=== PATIENT | female | born 1950 | race Caucasian/White ===

== ENCOUNTER 2017-08-06 11:00 | Outpatient (RCR) | payer MEDICARE, SELFPAY ==
--- NOTE | 2017-08-03 17:01 | PT.OIE ---
Current Diagnoses Spondylolisthesis, lumbar region (08/03/17) Other spondylosis with radiculopathy, lumbar region (08/03/17) Spinal stenosis, lumbar region without neurogenic claudication (08/03/17) Other abnormalities of gait and mobility (08/03/17) Provider Visit Care Team Role Provider Type Lalo Bauer MD Family Provider Physician Primary Care Provider Specialty: Family Practice Address: [address] [place] [address], [id number] Email: [email or web address] Vitaly Crabtree MD Attending Provider Physician Specialty: Orthopedic Surgery Address: [address] [place] [address], [id number] Email: [email or web address] [facility] Initial Evaluation PT-OP-A Visit Information Start: 08/03/17 13:44 Freq: Status: Active Protocol: Document 08/03/17 13:45 AMB (Rec: 08/03/17 15:36 AMB [email or web address]) Out-Patient Physical Therapy Visit Information Visit Information Visit Type Initial Evaluation Visit Note G code 0/10 Visit Start Time 13:45 Visit Stop Time 14:45 Total Visit Minutes 60 Visit Number 1 Evaluation Information Evaluation Date 08/03/17 PT-OP-B Current Condition Start: 08/03/17 13:44 Freq: Status: Active Protocol: Document 08/03/17 13:45 AMB (Rec: 08/03/17 16:14 AMB [email or web address]) Current Condition History of Current Condition Onset Date 06/04/17 Current Complaints Back pain radiates to L LE, difficult walking, difficulty with transfers History of Current Condition The patient reports an 11 year history of back pain, with a TLIF L3-5 with left hemilaminectomy at L2-3. Prior Treatments and Tests Previous physical therapy, personal training. Prior Functional Status Baseline Function- ADL's Independent Baseline Function- Mobility Independent Baseline Function- Gait Patient was ambulating without assistive device Current Functional Impairments (Reported) Functional Limitations- ADL's Pt is unable to lift or bend. Unable to reach the floor to put her dog dish on the floor. Functional Limitations- Mobility/Gait Pt has only been walking around her home. She has not gone grocery shopping yet. Personal Factors Other Personal Factors That May Effect The patient relies on friends Therapy/Recovery for assistance, some of whom she worries may not be especially trustworthy. Chronic nature of back pain, chronic nature of left knee pain, fibromyalgia, current smoker (trying to cut down). PT-OP-C Subjective Start: 08/03/17 13:44 Freq: Status: Active Protocol: Document 08/03/17 13:45 AMB (Rec: 08/03/17 16:14 AMB [email or web address]) Patient Questionnaires Oswestry Low Back Index Oswestry Score 66 Oswestry Impairment 60 to 79% Impaired (Score 60- 79) OP-PT Pain Assessment Pain Assessment Grid Paper Pain Assessment Grid Completed Yes Location low back and left leg Pain Location Details 6-9/10 Scale Used Numeric (1 - 10) Description Cramping Sharp Frequency Constant Radiating Location down the left posterior hip and into the groin Pain Aggravating Factors ADL's Activity Standing Sitting Walking Bending Lifting Pain Alleviating Factors Cold Home Pain Medication Use Pain Medications Used Yes: Aleve Home Pain Medication Frequency Pt states she is no longer taking opiates, Aleve hurts her stomach PT-OP-E Functional Tests Start: 08/03/17 13:44 Freq: Status: Active Protocol: Document 08/03/17 13:45 AMB (Rec: 08/03/17 16:34 AMB [email or web address]) Functional Tests Timed Up and Go (TUG) Score 39 seconds Comments 1 SPC TUG Impairment Rating 100% Impaired (Score 20) PT-OP-G Mobility & Gait Start: 08/03/17 13:44 Freq: Status: Active Protocol: Document 08/03/17 13:45 AMB (Rec: 08/03/17 16:34 AMB [email or web address]) OP Mobility Evaluation Bed Mobility Rolling pain and poor body mechanics Supine to and from Sit log roll Functional Movements Lifting and Carrying Lifts her dog (8#) from seated to standing keeping her close to her waist. Unable to lift her from the floor. OP Gait Assessment Gait Gait Assistance Required: Standby Assistance Distance (Feet) (feet) 75 Assistive Devices Assistive Device Straight Cane Gait Deviations General Gait Pattern Antalgic PT-OP-J Posture/Palpation/Skin Start: 08/03/17 13:44 Freq: Status: Active Protocol: Document 08/03/17 13:45 AMB (Rec: 08/03/17 16:34 AMB [email or web address]) Skin Assessment Incisional Assessment Incision Appearance/Comments 2 scars lateral to spine along lumbar spine. Well healed. PT-OP-K Range of Motion Start: 08/03/17 13:44 Freq: Status: Active Protocol: Document 08/03/17 13:45 AMB (Rec: 08/03/17 16:18 AMB [email or web address]) Lumbar Spine Range of Motion Lumbar Spine Active Degrees Testing Position standing Flexion 5 Extension 10 Lateral Flexion Left 7 Lateral Flexion Right 5 ROM Limitations Muscle Weakness Pain Comments pain with flexion and right sidebending PT-OP-M Strength Start: 08/03/17 13:44 Freq: Status: Active Protocol: Document 08/03/17 13:45 AMB (Rec: 08/03/17 16:20 AMB [email or web address]) Hip Strength Hip Manual Muscle Testing Left Flexion (L2) 3 Fair Extension (S1) 3+ Fair+ Abduction 3+ Fair+ Right Flexion (L2) 3+ Fair+ Extension (S1) 3+ Fair+ Abduction 3+ Fair+ Knee Strength Knee Manual Muscle Testing Left Flexion (S2) 4- Good- Extension (L3) 4- Good- Right Flexion (S2) 4 Good Extension (L3) 4 Good PT-OP-T Assessment and Plan Start: 08/03/17 13:44 Freq: Status: Active Protocol: Document 08/03/17 13:45 AMB (Rec: 08/03/17 16:51 AMB [email or web address]) Physical Therapy Assessment Rehab Potential Rehabilitation Potential Fair Evaluation Complexity Number of Personal Factors/Comorbidities 3 or More Number of Body Systems Impaired 4 or More Clinical Presentation at Evaluation Evolving Impairments Impairments Activity Tolerance Balance Functional Activities Functional Mobility Gait Pain ROM Strength Goals 3 Impairment Gait Short Term Goal (STG) The patient will improve her TUG time with 1 SPC to less than 20 seconds. STG Duration 4 weeks Residential Goal (LTG) The patient will ambulate in the community for 20 minutes with her SPC without an increase in her baseline pain. LTG Duration 8 weeks 2 Impairment Strength Short Term Goal (STG) The patient will be independent with an aquatic and land based exercise program to improve her core and LE strength. STG Duration 4 weeks Die Machine Operator Goal (LTG) The patient will carry a bag of groceries from her car to her house with good body mechanics without an increase in her baseline pain. LTG Duration 8 weeks 1 Impairment ROM Short Term Goal (STG) The patient will improve her lumbar ROM to 30 degrees of flexion, 20 degrees of extension and 10 degrees of sidebending bilaterally. STG Duration 4 weeks Die Machine Operator Goal (LTG) The patient will squat and bend down to place her dog's food bowl on the floor with good body mechanics with 5/10 back pain or less. LTG Duration 8 weeks Assessment Summary Assessment The patient presents with high pain (6-8/10) levels that are limiting her walking, sitting , standing, squatting tolerance. Her history of left knee pain limits her squatting and her she has acute back pain with forward flexion of even 5 degrees. Currently she is not yet at her previous functional level as she continues to need a SPC and her activity tolerance is quite poor (she needs to sit multiple times while preparing a meal), she has not tried to ambulate outside her house except for medical appointments. She will benefit from PT to improve her functional mobility and reduce her pain levels. Physical Therapy Plan Frequency and Duration Frequency of Treatment 3x/Week Duration of Treatment 8 weeks Plan of Care Start Date 08/03/17 Plan of Care End Date 09/28/17 Therapeutic Interventions Therapeutic Interventions Aquatic Therapy Balance Training Gait Training Home Exercise Program Manual Therapy Neuromuscular Re-education Patient/Caregiver Education Self-Care/Home Management Therapeutic Activities Therapeutic Exercises Modalities Cold Pack/Ice Massage Provider Signature Date
--- NOTE | 2017-08-06 17:07 | PT.OTN ---
Current Diagnoses Spondylolisthesis, lumbar region (08/06/17) Other spondylosis with radiculopathy, lumbar region (08/06/17) Spinal stenosis, lumbar region without neurogenic claudication (08/06/17) Physical Therapy Treatment Note PT-OP-A Visit Information Start: 08/03/17 13:44 Freq: Status: Active Protocol: Document 08/06/17 16:40 CLB (Rec: 08/06/17 17:01 CLB [id number]) Out-Patient Physical Therapy Visit Information Visit Information Visit Type Treatment Note Visit Start Time 11:05 Visit Stop Time 11:45 Total Visit Minutes 40 Visit Number 2 Number of BRICK HANDLER Visits 1 PT-OP-B Current Condition Start: 08/03/17 13:44 Freq: Status: Active Protocol: Document 08/03/17 13:45 AMB (Rec: 08/03/17 16:14 AMB [email or web address]) Current Condition History of Current Condition Onset Date 06/04/17 Current Complaints Back pain radiates to L LE, difficult walking, difficulty with transfers History of Current Condition The patient reports an 11 year history of back pain, with a TLIF L3-5 with left hemilaminectomy at L2-3. Prior Treatments and Tests Previous physical therapy, personal training. Prior Functional Status Baseline Function- ADL's Independent Baseline Function- Mobility Independent Baseline Function- Gait Patient was ambulating without assistive device Current Functional Impairments (Reported) Functional Limitations- ADL's Pt is unable to lift or bend. Unable to reach the floor to put her dog dish on the floor. Functional Limitations- Mobility/Gait Pt has only been walking around her home. She has not gone grocery shopping yet. Personal Factors Other Personal Factors That May Effect The patient relies on friends Therapy/Recovery for assistance, some of whom she worries may not be especially trustworthy. Chronic nature of back pain, chronic nature of left knee pain, fibromyalgia, current smoker (trying to cut down). PT-OP-C Subjective Start: 08/03/17 13:44 Freq: Status: Active Protocol: Document 08/06/17 16:40 CLB (Rec: 08/06/17 17:05 CLB [id number]) OP-PT Subjective Patient Comments Patient Comments Pt eager to do pool therapy. OP-PT Pain Assessment Location low back and left leg Scale Used not rated Description Sharp Frequency Frequent PT-OP-E Functional Tests Start: 08/03/17 13:44 Freq: Status: Active Protocol: Document 08/03/17 13:45 AMB (Rec: 08/03/17 16:34 AMB [email or web address]) Functional Tests Timed Up and Go (TUG) Score 39 seconds Comments 1 SPC TUG Impairment Rating 100% Impaired (Score 20) PT-OP-G Mobility & Gait Start: 08/03/17 13:44 Freq: Status: Active Protocol: Document 08/03/17 13:45 AMB (Rec: 08/03/17 16:34 AMB [email or web address]) OP Mobility Evaluation Bed Mobility Rolling pain and poor body mechanics Supine to and from Sit log roll Functional Movements Lifting and Carrying Lifts her dog (8#) from seated to standing keeping her close to her waist. Unable to lift her from the floor. OP Gait Assessment Gait Gait Assistance Required: Standby Assistance Distance (Feet) (feet) 75 Assistive Devices Assistive Device Straight Cane Gait Deviations General Gait Pattern Antalgic PT-OP-J Posture/Palpation/Skin Start: 08/03/17 13:44 Freq: Status: Active Protocol: Document 08/03/17 13:45 AMB (Rec: 08/03/17 16:34 AMB [email or web address]) Skin Assessment Incisional Assessment Incision Appearance/Comments 2 scars lateral to spine along lumbar spine. Well healed. PT-OP-K Range of Motion Start: 08/03/17 13:44 Freq: Status: Active Protocol: Document 08/03/17 13:45 AMB (Rec: 08/03/17 16:18 AMB [email or web address]) Lumbar Spine Range of Motion Lumbar Spine Active Degrees Testing Position standing Flexion 5 Extension 10 Lateral Flexion Left 7 Lateral Flexion Right 5 ROM Limitations Muscle Weakness Pain Comments pain with flexion and right sidebending PT-OP-M Strength Start: 08/03/17 13:44 Freq: Status: Active Protocol: Document 08/03/17 13:45 AMB (Rec: 08/03/17 16:20 AMB [email or web address]) Hip Strength Hip Manual Muscle Testing Left Flexion (L2) 3 Fair Extension (S1) 3+ Fair+ Abduction 3+ Fair+ Right Flexion (L2) 3+ Fair+ Extension (S1) 3+ Fair+ Abduction 3+ Fair+ Knee Strength Knee Manual Muscle Testing Left Flexion (S2) 4- Good- Extension (L3) 4- Good- Right Flexion (S2) 4 Good Extension (L3) 4 Good PT-OP-S Aquatic Treatment Start: 08/06/17 13:37 Freq: Status: Active Protocol: Document 08/06/17 16:40 CLB (Rec: 08/06/17 17:01 CLB [id number]) Aquatics Treatment Pool Entry/Exit Pool Entry/Exit Method Stairs Assistance Standby Assistance Water Walking Forwards Water Level Chest Level Level of Assistance Contact Guard Assistance Comments Pt had difficulty with balance in water. Lower Extremity Exercises 5 Details Seated knee ext Body Position Sitting Reps/Duration 10 4 Details Squats Body Position Standing Water Level Waist Level Reps/Duration 10 3 Details Leg circles Body Position Sitting Water Level Chest Level Reps/Duration 10 2 Details Hip flx Body Position Standing Water Level Chest Level Reps/Duration 10 1 Details Hip Abd Body Position Standing Water Level Chest Level Reps/Duration 10 Comments Pt had difficulty with SLS on RLE. PT-OP-T Assessment and Plan Start: 08/03/17 13:44 Freq: Status: Active Protocol: Document 08/06/17 16:40 CLB (Rec: 08/06/17 17:01 CLB [id number]) Physical Therapy Assessment Assessment Summary Assessment Pt was tremulous and had difficulty with balance. Pt was not comfortable with floating devices and going into deep water. Pt gained confidence with water walking and increased stride length by end of therapy session. Physical Therapy Plan Frequency and Duration Frequency of Treatment 3x/Week Duration of Treatment 8 weeks Plan of Care Start Date 08/03/17 Plan of Care End Date 09/28/17 Next Visit Focus/Plan Next Visit Plan Continue to progress aquatics as tolerated.
--- NOTE | 2017-08-21 07:51 | PT.OPDS ---
Current Diagnoses Spondylolisthesis, lumbar region (08/06/17) Other spondylosis with radiculopathy, lumbar region (08/06/17) Spinal stenosis, lumbar region without neurogenic claudication (08/06/17) Provider Visit Care Team Role Provider Type Lalo Bauer MD Family Provider Physician Primary Care Provider Specialty: Family Practice Address: [address] [place] [address], [id number] Email: [email or web address] Vitaly Crabtree MD Attending Provider Physician Specialty: Orthopedic Surgery Address: [address] [place] [address], [address] Email: [email or web address] Discharge Summary PT-OP-B Current Condition Start: 08/03/17 13:44 Freq: Status: Active Protocol: Document 08/03/17 13:45 AMB (Rec: 08/03/17 16:14 AMB [email or web address]) Current Condition History of Current Condition Onset Date 06/04/17 Current Complaints Back pain radiates to L LE, difficult walking, difficulty with transfers History of Current Condition The patient reports an 11 year history of back pain, with a TLIF L3-5 with left hemilaminectomy at L2-3. Prior Treatments and Tests Previous physical therapy, personal training. Prior Functional Status Baseline Function- ADL's Independent Baseline Function- Mobility Independent Baseline Function- Gait Patient was ambulating without assistive device Current Functional Impairments (Reported) Functional Limitations- ADL's Pt is unable to lift or bend. Unable to reach the floor to put her dog dish on the floor. Functional Limitations- Mobility/Gait Pt has only been walking around her home. She has not gone grocery shopping yet. Personal Factors Other Personal Factors That May Effect The patient relies on friends Therapy/Recovery for assistance, some of whom she worries may not be especially trustworthy. Chronic nature of back pain, chronic nature of left knee pain, fibromyalgia, current smoker (trying to cut down). PT-OP-C Subjective Start: 08/03/17 13:44 Freq: Status: Active Protocol: Document 08/21/17 07:47 AMB (Rec: 08/21/17 07:51 AMB [id number]) OP-PT Subjective Patient Comments Patient Comments The patient called in to say that walking from her car into therapy was just too much for her. Called her MD office and suggested home health. The patient is therefore discharged from outpatient physical therapy at this time. While she tried to come to appointments, she is not leaving her house at this time due to pain. Physical Therapy Plan Discharge Physical Therapy Discharge Reasons Patient Request Discharge Comments Hopefully will be getting home health, cannot tolerate outpatient PT at this time despite being very gentle, patient states that the drive and the walk in here are too much. No goals met at this time. Patient attended one evaluation and one aquatic visit.
== END 2017-08-24 08:58 ==
LOC: PHYS 11:00
PROVIDERS: Family Provider Family Medicine; PCP Family Medicine; Visit Provider Orthopaedic Surgery Orthopaedic Surgery of the Spine
DX: M48.061 Spinal stenosis, lumbar region without neurogenic claudication (principal); M47.26 Other spondylosis with radiculopathy, lumbar region; M43.16 Spondylolisthesis, lumbar region; R26.89 Other abnormalities of gait and mobility
CPT/HCPCS: 97113; 97162

== ENCOUNTER → 2019-05-27 06:57 | Outpatient (CLI) | payer MEDICARE, SELFPAY ==
[2019-05-27 07:37] LABS: Add Manual Diff / Slide Review NO; Basophils Absolute Auto 100 /uL (0-100); Basophils Percent Auto 0.7 % (0-2); Eosinophils Absolute Auto 100 /uL (0-450); Eosinophils Percent Auto 1.3 % (2-4); Hemoglobin 16.2 g/dL (12.0-16.0); Lymphocytes Absolute Auto 2500 /uL (1100-4500); Lymphocytes Percent Auto 28.4 % (25-40); Mean Corpuscular HGB Conc 33.8 % (30-36); Mean Corpuscular Hemoglobin 31.7 PG (26-34); Mean Corpuscular Volume 93.8 fL (80-100); Monocytes Absolute Auto 500 /uL (0-900); Monocytes Percent Auto 6.1 % (3-14); Neutrophils Absolute Auto 5700 /uL (1500-7000); Neutrophils Percent Auto 63.5 % (50-75); Platelet Count 356 X10^3/uL (150-400); Red Blood Cell Count 5.11 X10^6/uL (4.0-5.2); White Blood Cell Count 8.9 X10^3/uL (4.5-11.0)
[2019-05-27 07:47] LABS: Hemoglobin A1C% w Est Avg Glu 5.4 % (4.0-6.0)
[2019-05-27 08:30] LABS: HEMOLYSIS < 15 (0-50)
[2019-05-27 08:31] LABS: Alanine Aminotransferase 14 IU/L (<35); Albumin 4.6 g/dL (3.5-5.0); Albumin Globulin Ratio 1.4 (1.0-2.8); Alkaline Phosphatase 101 U/L (38-126); Aspartate Aminotransferase 27 IU/L (14-36); BUN Creatinine Ratio 34.3 (6-22); Bilirubin Total 0.4 mg/dL (0.2-1.3); Blood Urea Nitrogen 24 mg/dL (7-17); Calcium 10.5 mg/dL (8.4-10.2); Carbon Dioxide 30 mmol/L (22-32); Chloride 103 mmol/L (98-107); Estimated Glomerular Filt Rate > 60.0 mL/min (>60); Globulin 3.2 g/dL (1.7-4.1); Glucose 112 mg/dL (80-110); HDL Cholesterol 47 mg/dL (40-60); Sodium 142 mmol/L (137-145); Total Protein 7.8 g/dL (6.3-8.2); Triglycerides 242 mg/dL (35-150)
[2019-05-27 08:38] LABS: Cholesterol 345 mg/dL (140-199); LDL Cholesterol Calculated 250 mg/dL (<100); Potassium 5.5 mmol/L (3.4-5.1)
== END ==
PROVIDERS: Family Provider Family Medicine; PCP Family Medicine; Referring Provider Family Medicine; Visit Provider Family Medicine
DX: Z79.899 Other long term (current) drug therapy (principal); E16.2 Hypoglycemia, unspecified
CPT/HCPCS: 36415; 80053; 80061; 83036; 85025

== ENCOUNTER → 2019-12-17 07:06 | Outpatient (CLI) | payer MEDICARE, SELFPAY ==
[2019-12-17 09:05] LABS: Add Manual Diff / Slide Review NO; Basophils Absolute Auto 100 /uL (0-100); Basophils Percent Auto 0.6 % (0-2); Eosinophils Absolute Auto 200 /uL (0-450); Hematocrit 43.7 % (36-46); Hemoglobin 14.8 g/dL (12.0-16.0); Hemoglobin A1C% w Est Avg Glu 5.6 % (4.0-6.0); Lymphocytes Absolute Auto 2100 /uL (1100-4500); Lymphocytes Percent Auto 26.9 % (25-40); Mean Corpuscular Hemoglobin 31.8 PG (26-34); Mean Corpuscular Volume 93.5 fL (80-100); Monocytes Absolute Auto 500 /uL (0-900); Monocytes Percent Auto 6.2 % (3-14); Neutrophils Absolute Auto 5000 /uL (1500-7000); Neutrophils Percent Auto 64.3 % (50-75); Platelet Count 343 X10^3/uL (150-400); Red Blood Cell Count 4.67 X10^6/uL (4.0-5.2); Red Cell Distribution Width 13.5 % (11.6-14.8); White Blood Cell Count 7.8 X10^3/uL (4.5-11.0)
[2019-12-17 09:31] LABS: Alanine Aminotransferase 16 IU/L (<35); Albumin 4.2 g/dL (3.5-5.0); Albumin Globulin Ratio 1.6 (1.0-2.8); Alkaline Phosphatase 103 U/L (38-126); Aspartate Aminotransferase 30 IU/L (14-36); BUN Creatinine Ratio 22.1 (6-22); Bilirubin Total 0.3 mg/dL (0.2-1.3); Blood Urea Nitrogen 15 mg/dL (7-17); Calcium 9.5 mg/dL (8.4-10.2); Carbon Dioxide 32 mmol/L (22-32); Chloride 102 mmol/L (98-107); Cholesterol 190 mg/dL (140-199); Estimated Glomerular Filt Rate > 60.0 mL/min (>60); Globulin 2.6 g/dL (1.7-4.1); Glucose 103 mg/dL (80-110); HDL Cholesterol 51 mg/dL (40-60); HEMOLYSIS < 15 (0-50); LDL Cholesterol Calculated 118 mg/dL (<100); Potassium 4.7 mmol/L (3.4-5.1); Sodium 144 mmol/L (137-145); Total Protein 6.8 g/dL (6.3-8.2); Triglycerides 107 mg/dL (35-150)
== END ==
PROVIDERS: Family Provider Family Medicine; PCP Family Medicine; Referring Provider Family Medicine; Visit Provider Family Medicine
DX: E16.2 Hypoglycemia, unspecified (principal)
CPT/HCPCS: 36415; 80053; 80061; 83036; 85025

== ENCOUNTER → 2023-07-30 15:37 | Outpatient (ROUT) | payer MEDICARE, SELFPAY | PROVIDERS: Family Provider Family Medicine; PCP Family Medicine; Visit Provider Dermatology | DX: Z48.817 Encounter for surgical aftercare following surgery on the skin and subcutaneous tissue (principal); Z48.02 Encounter for removal of sutures; D48.5 Neoplasm of uncertain behavior of skin; L57.8 Other skin changes due to chronic exposure to nonionizing radiation; L71.8 Other rosacea; X32.XXXA Exposure to sunlight, initial encounter | CPT/HCPCS: 87070; 87075; 87205 ==

== ENCOUNTER 2023-08-04 12:29 | Emergency (ER) | payer MEDICARE, SELFPAY ==
[2023-08-04 12:40] VITALS: BP 195/91; PULSE 90; RESP 16; TEMP 37.4; O2SAT 96; BMI 25.6
--- NOTE | 2023-08-04 13:14 | ED_ITS ---
HPI - Skin/Abscess/Foreign Bdy General Chief complaint: Skin/Abscess/Foreign Body Stated complaint: Staph infection flare up, right forearm Time Seen by Provider: 08/04/23 13:13 Source: patient Mode of arrival: Ambulatory Limitations: no limitations History of Present Illness HPI narrative: 73-year-old female with history of chronic back pain multiple orthopedic injuries and recurrent skin cell cancers who had an excision in May with Dermatology. She states they had used dissolvable sutures for the inner layer on an excision and they did not dissolve. She ultimately had several sutures removed over time and then several from the inner repair for her excision on her forearm. She then developed a red spot. It has since progressed. She saw her bundle person who either aspirated or I indeed some pus from the site and sent a culture on the 29 of July. Patient received a call Sunday and was started on cephalexin and has had 4 doses since then. She states the redness has continued to spread in the puffiness has moved towards her elbow. She states painful. No fevers, no chest pain or shortness of breath no nausea or vomiting no other GI or urinary symptoms. She states it isn't tracking upper arm. She states she had gotten a call that told her it was a staph infection but does not know if it was MRSA or not. Patient states medication include PRN Tylenol, diazepam, oxycodone. She states no other daily medications she has multiple allergies and is allergic to Neosporin and sulfa. Patient states she has had multiple orthopedic injuries including in her right shoulder. She also notes she has a lot of tendon issues at baseline. Related Data Home Medications Medication Instructions Recorded Confirmed melatonin 5 mg tablet 2 tab PO QDAY ##0 05/17/17 11/09/17 diazepam 10 mg tablet 10 mg PO DAILY PRN 30 days 12/06/17 11/18/18 Previous Rx's Medication Instructions Recorded erythromycin 5 mg/gram (0.5 %) eye 1 applic OPHTH TID ##3.5 05/24/17 ointment fluticasone propionate 50 2 spray intranasal QDAY #9.9 grams 10/08/17 mcg/actuation nasal spray,suspension (Flonase Allergy Relief) omeprazole 20 mg capsule,delayed 20 mg PO DAILY #30 caps 11/25/17 release carisoprodol 350 mg tablet 350 mg PO BID PRN muscle pain #60 12/03/17 tabs carisoprodol 350 mg tablet 350 mg PO BID PRN muscle pain #60 12/03/17 tabs carisoprodol 350 mg tablet 350 mg PO BID PRN muscle pain #60 12/03/17 tabs oxycodone-acetaminophen 7.5 mg-325 1 tab PO Q6H PRN pain #120 tabs 12/03/17 mg tablet oxycodone-acetaminophen 7.5 mg-325 1 tab PO Q6H PRN pain #120 tabs 12/03/17 mg tablet oxycodone-acetaminophen 7.5 mg-325 1 tab PO Q6H PRN pain #120 tabs 12/03/17 mg tablet escitalopram oxalate 20 mg tablet 20 mg PO QDAY #90 tabs 04/08/18 lamotrigine 100 mg tablet 100 mg PO QDAY #30 tabs 05/06/18 (Lamictal) vortioxetine 10 mg tablet 10 mg PO DAILY #30 tabs 05/10/18 (Trintellix) tetracycline 500 mg tablet 500 mg PO Q6H 7 days #28 tabs 08/04/23 Allergies Allergy/AdvReac Type Severity Reaction Status Date / Time bacitracin Allergy Severe Anaphalaxis Verified 11/18/18 14:01 [From NEOSPORIN ([id number])] neomycin Allergy Severe Anaphalaxis Verified 11/18/18 14:01 [From NEOSPORIN ([id number])] polymyxin B Allergy Severe Anaphalaxis Verified 11/18/18 14:01 [From NEOSPORIN ([id number])] gabapentin [GABAPENTIN] Allergy Intermediate Dizzyness Verified 11/18/18 14:01 and nausea Iodine and Iodide Containing Allergy Unknown Verified 11/18/18 14:01 Produc [IODINE AND IODIDE CONTAINING PRODUC] venlafaxine [VENLAFAXINE] AdvReac Intermediate Dizzyness Verified 11/18/18 14:01 and nausea bupropion [BUPROPION] AdvReac Unknown Verified 11/18/18 14:01 rofecoxib [From VIOXX] AdvReac Unknown Verified 11/18/18 14:01 Sulfa (Sulfonamide AdvReac Unknown Verified 11/18/18 14:01 Antibiotics) [SULFA (SULFONAMIDE ANTIBIOTICS)] varenicline [From CHANTIX] AdvReac Unknown Verified 11/18/18 14:01 Fibromyalgia medications Allergy Intermediate Dizzyness Uncoded 11/18/18 14:01 and nausea Review of Systems Review of Systems ROS Unobtainable: All systems reviewed & are unremarkable except as noted in HPI and below Patient History Medical History (Updated 08/04/23 @ 13:48 by Claudia Velázquez DO) Uncomplicated opioid dependence Actinic keratosis (~12/2016) Spinal stenosis (Unknown) Hyperlipemia (Unknown) Plantar warts (Unknown) Polymyalgia rheumatica (Unknown) Allergic rhinitis (Unknown) Osteoarthritis (Unknown) Anxiety (Unknown) Depression (Unknown) Restless leg syndrome (Unknown) Chronic back pain (Unknown) Fibromyalgia (Unknown) Fractures (Unknown) Scoliosis (Unknown) Urinary incontinence (Unknown) Genital warts (Unknown) Abnormal Pap smear of cervix (Unknown) Skin cancer (Unknown) Hypertension (Unknown) GERD (gastroesophageal reflux disease) (Unknown) Colon polyps (Unknown) Cervical cancer (Unknown) Surgical History History of back surgery (05/2017) Family History Brother Prostate cancer Child Hypertension Father High cholesterol Stroke Grandmother Heart disease Stroke Mother Hypertension Mental health problem Sister Breast cancer Social History Smoking Status: Former smoker alcohol intake: never substance use type: does not use Smoking Status: Former smoker Substance Use Type: does not use Exam Narrative Exam Narrative: GENERAL: Alert and oriented x three, well-appearing female in mild distress. HEENT: Head normocephalic, atraumatic, EOMI, pupils reactive, face symmetric, moist mucous membranes NECK: Supple, full range of motion CARDIOVASCULAR: Regular rate and rhythm without murmurs, rubs or gallops. RESPIRATORY: Breath sounds equal bilaterally, no wheezes rales or rhonchi. ABDOMEN: Soft, nontender. Normoactive bowel sounds all 4 quadrants. No guar ding or rebound, rigidity, no mass : No CVA tenderness EXTREMITIES: Normal range of motion. Neurovascularly intact. Patient has a about a 4 x 3 area of erythema with some induration, some swelling but without erythema extending somewhat beyond that. Patient has full range of motion, 2+ radial pulse. She is tender over the site but no fluctuation. She has healed incision over the area which is intact without any wound or dehiscence. NEUROLOGICAL: Cranial nerves II through XII grossly intact. Moving all extremities SKIN: Warm, dry, no petechiae, no rashes or lesions other than noted above. Initial Vital Signs Initial Vital Signs: Vital Signs Temperature 99.4 F 08/04/23 12:40 Pulse Rate 90 08/04/23 12:40 Respiratory Rate 16 08/04/23 12:40 Blood Pressure 195/91 H 08/04/23 12:40 Pulse Oximetry 96 08/04/23 12:40 Oxygen Delivery Method Room Air 08/04/23 12:40 Course Vital Signs Vital signs: Vital Signs - 8 hr 08/04/23 12:40 08/04/23 13:58 Temperature 99.4 F Pulse Rate 90 94 H Respiratory Rate 16 16 Blood Pressure 195/91 H 133/79 Pulse Oximetry 96 93 Oxygen Delivery Method Room Air Room Air MDM - Skin/Abscess/Foreign Bdy MDM Narrative Medical decision making narrative: 73-year-old female who had an excision of a skin cancer from her arm 2 months ago was fairly large required layered closure. Did not heal well and then developed some infection. By her report was aspirated her head incision and drainage in the office and culture was sent. Culture is available in the computer and shows Staphylococcus lungdunensis, was sensitive to Cipro, Levaquin and tetracycline. Patient states she has had a lot of tendon issues in the past we discussed we will try tetracycline of the Levaquin would be preferable in terms of sensitivities. Discussed risks versus benefits both periods. We will switch her from Keflex as it she has had 48 hours worth of antibiotic and is still having some worsening. Bedside ultrasound was used there was no fluid collection skin. Discharge Plan Departure Patient Disposition: Home Clinical Impression: Cellulitis of forearm, right Instructions: DI for Cellulitis -- Adult Activity Restrictions/Additional Instructions: Follow up with your physician for recheck in the next week if not resolved. Stop your cephalexin or Keflex. Start the new antibiotic that was sent to [facility] in [place]. Please return for fevers increasing redness, swelling, increasing pain, swelling of your entire arm, new numbness tingling or weakness or other new or concerning changes. Prescriptions: New tetracycline 500 mg tablet 500 mg PO Q6H 7 Days Qty: 28 0RF No Action oxycodone-acetaminophen 7.5-325 mg tablet 1 tab PO Q6H PRN (Reason: pain) Qty: 120 0RF Rx Instructions: EXEMPT oxycodone-acetaminophen 7.5-325 mg tablet 1 tab PO Q6H PRN (Reason: pain) Qty: 120 0RF Rx Instructions: EXEMPT oxycodone-acetaminophen 7.5-325 mg tablet 1 tab PO Q6H PRN (Reason: pain) Qty: 120 0RF Rx Instructions: EXEMPT carisoprodol 350 mg tablet 350 mg PO BID PRN (Reason: muscle pain) Qty: 60 0RF Rx Instructions: may fill on or after 12/25/17 carisoprodol 350 mg tablet 350 mg PO BID PRN (Reason: muscle pain) Qty: 60 0RF Rx Instructions: may fill on or after 01/23/18 carisoprodol 350 mg tablet 350 mg PO BID PRN (Reason: muscle pain) Qty: 60 0RF Rx Instructions: may fill on or after 02/20/18 fluticasone propionate [Flonase Allergy Relief] 50 mcg/actuation spray,suspension 2 spray Intranasal QDAY Qty: 9.9 5RF Trintellix 10 mg tablet 10 mg PO DAILY Qty: 30 0RF diazepam 10 mg tablet 10 mg PO DAILY PRN30 Days melatonin 5 MG tablet 2 tab PO QDAY Qty: 0 erythromycin 1 GM ointment 1 applic OPHTH TID Qty: 3.5 0RF omeprazole 20 mg capsule,delayed release(DR/EC) 20 mg PO DAILY Qty: 30 11RF escitalopram oxalate 20 mg tablet 20 mg PO QDAY Qty: 90 0RF lamotrigine [Lamictal] 100 mg tablet 100 mg PO QDAY Qty: 30 2RF Referrals: Lalo Bauer MD [Primary Care Provider] - Stand Alone Forms: Patient Portal/API
[2023-08-04 13:58] VITALS: BP 133/79; PULSE 94; RESP 16; O2SAT 93
== END 2023-08-04 13:58 | disposition home or self-care (01) ==
PROVIDERS: Emergency Provider Emergency Medicine; Family Provider Family Medicine; PCP Family Medicine
DX: L03.113 Cellulitis of right upper limb (principal)
CPT/HCPCS: 99281; 99283